=== PATIENT | female | born 1930 | race Hispanic/Latino ===

== ENCOUNTER 2017-11-19 07:24 | Observation (INO) | payer MEDICARE, BC ==
--- NOTE | 2017-11-19 08:01 | ED PDOC ---
Arrival/HPI - General Time Seen by Provider: 11/19/17 07:25 Historian: Patient - History of Present Illness Narrative History of Present Illness (Text): 11/19/17 07:55 An 86 year old female, whose past medical history includes HTN, gout, and hypothyroidism, presents to the emergency department for a complaint of bilateral rib/side pain. The patient states that the discomfort developed yesterday and worsened throughout the day. She reports that she had an episode of this discomfort once last week. She states that she was using a heating pad with no relief of her symptoms. The patient lives alone and at baseline walks with a cane. The patient denies fevers, chills, headache, dizziness, sore throat, cough, chest pain, shortness of breath, dyspnea on exertion, abdominal pain, nausea, vomiting, diarrhea, neck pain, urinary/bowel changes or any other complaint. PMD: Dr. Cantrell Weigher And Charger: Dr. Leong Time/Duration: Other (Yesterday) Symptom Onset: Sudden Symptom Course: Unchanged Activities at Onset: Rest, Light Context: Home Past Medical History - Provider Review Nursing Documentation Reviewed: Yes - Infectious Disease Hx of Infectious Diseases: None - Tetanus Immunization Tetanus Immunization: Unknown - Cardiac Hx Hypertension: Yes Hx Peripheral Edema: Yes (bilateral lower extremities) - Pulmonary Hx Pneumonia: Yes (x3) - Neurological Hx Neurological Disorder: (peripheral neuropathy) - Endocrine/Metabolic Hx Hypothyroidism: Yes - Hematological/Oncological Hx Cancer: Yes (skin) - Integumentary Hx Basal Cell Carcinoma: Yes (skin ca growth removed from front of scalp) - Musculoskeletal/Rheumatological Hx Falls: No - Psychiatric Hx Depression: No Hx Emotional Abuse: No Hx Physical Abuse: No Hx Substance Use: No - Surgical History Hx Appendectomy: Yes - Suicidal Assessment Feels Threatened In Home Enviroment: No Family/Social History - Physician Review Nursing Documentation Reviewed: Yes Family/Social History: No Known Family HX Smoking Status: Former Smoker Hx Alcohol Use: No Hx Substance Use: No Hx Substance Use Treatment: No Allergies/Home Meds Allergies/Adverse Reactions: Allergies No Known Allergies Allergy (Verified 10/07/12 10:00) Home Medications: Home Meds Medication Instructions Recorded Confirmed Levothyroxine Sodium 0.075 mg PO DAILY 10/07/12 11/19/17 [Levothyroxine] Allopurinol [Zyloprim] 300 mg PO DAILY 11/19/17 11/19/17 Losartan Potassium 25 mg PO DAILY 11/19/17 11/19/17 Triamterene/Hydrochlorothiazid 1 cap PO DAILY 11/19/17 11/19/17 [Triamterene-Hydrochlorothiazide 25 mg-37.5 mg] Review of Systems - Physician Review All systems were reviewed & negative as marked: Yes - Review of Systems Constitutional: absent: Fevers ENT: absent: Sore Throat Respiratory: absent: SOB, Cough Cardiovascular: absent: Chest Pain, DURAND Gastrointestinal: absent: Abdominal Pain, Stool Changes, Diarrhea, Nausea, Vomiting Genitourinary Female: absent: Urine Output Changes Musculoskeletal: Other (Bilateral side/rib pain). absent: Neck Pain Neurological: absent: Headache, Dizziness Physical Exam Vital Signs Reviewed: Yes Temperature: Afebrile Blood Pressure: Normal Pulse: Regular Respiratory Rate: Normal Appearance: Positive for: Well-Appearing, Non-Toxic, Comfortable Pain Distress: None Mental Status: Positive for: Alert and Oriented X 3 - Systems Exam Head: Present: Atraumatic, Normocephalic Pupils: Present: PERRL Extroacular Muscles: Present: EOMI Conjunctiva: Present: Normal Mouth: Present: Moist Mucous Membranes Neck: Present: Normal Range of Motion Respiratory/Chest: Present: Clear to Auscultation, Good Air Exchange. No: Respiratory Distress, Accessory Muscle Use Cardiovascular: Present: Regular Rate and Rhythm, Normal S1, S2. No: Murmurs Abdomen: No: Tenderness, Distention, Peritoneal Signs Back: Present: Other (Tenderness to palpation of bilateral ribs and lateral sides.) Upper Extremity: Present: Normal Inspection. No: Cyanosis, Edema Lower Extremity: Present: Normal Inspection. No: Edema Neurological: Present: GCS=15, CN II-XII Intact, Speech Normal Skin: Present: Warm, Dry, Normal Color. No: Rashes Psychiatric: Present: Alert, Oriented x 3, Normal Insight, Normal Concentration Medical Decision Making ED Course and Treatment: 11/19/17 08:04 Impression: An 87 year old female presents to the emergency department with complaint of bilateral rib/side pain. On exam, there was tenderness to palpation of bilateral ribs. No abdominal pain or tenderness. No DURAND, orthopnea or PND. Low pretest wells, will seek dimer to r/out. No tearing Chest pain to back. Given no scapular pain and pain reproducible to palpation: likely MSK however- Given hx of HTN, HLD, Smoking and Age, atypitcal chest pain w/ non-normal non-stemi EKG will likely be moderate Heart score. Has not had echo or stress x3 years. NO CVAT. Plan: -- EKG -- Chest X-ray -- Labs -- Reassess and disposition Prior Visits: Notes and results from previous visits were reviewed. Progress Notes: 11/19/17 07:39 EKG: Ordered, reviewed, and independently interpreted the EKG. Rate : 75 BPM Rhythm : NSR Interpretation : PACs. No STEMI. Normal [place]. Chest X-ray Dictator : Richard Cannon MD Report Date : 11/19/2017 09:37:11 IMPRESSION: No interval acute cardiopulmonary disease appreciated. Limited chronic fibrosis left medial base and right costophrenic sulcus versus trace chronic right pleural effusion. 11/19/17 08:58: Case discussed in detail with Dr. Cantrell, who accepts patient to his service. Requests order for cardiology consult from Dr. Leong. Labs largely unremarkable except elevated D dimer. Will CTA to rule out dissection vs. PE. CTA chest PE protocol Dictator : Brigida Maravilla MD Report Date : 11/19/2017 09:52:50 Impression: No large central or segmental pulmonary embolus identified. Patchy rounded consolidation within the superior posterior aspect of the left upper lobe suspicious for pneumonia. Recommend follow-up to ensure complete resolution. Additional findings as above. 11/19/17 ~1000 appreciate consult w/ Dr. Peguero: to admit to his service for moderate CP. pending 2nd trop - Lab Interpretations I have reviewed the lab results: Yes - EKG Interpretation Interpreted by ED Physician: Yes Type: 12 lead EKG - Scribe Statement The provider has reviewed the documentation as recorded by the Scribe Terrie Gifford Provider Scribe Attestation: All medical record entries made by the Scribe were at my direction and person ally dictated by me. I have reviewed the chart and agree that the record accurately reflects my personal performance of the history, physical exam, medical decision making, and the department course for this patient. I have also personally directed, reviewed, and agree with the discharge instructions and disposition. Disposition/Present on Arrival - Present on Arrival Any Indicators Present on Arrival: No History of DVT/PE: No History of Uncontrolled Diabetes: No Urinary Catheter: No History Surgical Site Infection Following: None - Disposition Have Diagnosis and Disposition been Completed?: Yes Diagnosis: Chest pain Disposition Time: 09:00 Patient Problems: Current Active Problems Problem Status Onset Chest pain Acute Condition: GOOD
[2017-11-19 08:28] LABS: BASO # 0.03 K/mm3 (0.0-2.0); BASO % 0.4 % (0.0-3.0); EOS # 0.2 (0.0-0.7); EOS % 2.4 % (1.5-5.0); GRAN # 5.2 (1.4-6.5); GRAN % 72.6 % (50.0-68.0); HEMOGLOBIN 10.7 g/dL (12.0-16.0); LYMPH # 1.4 (1.2-3.4); LYMPH % 19.2 % (22.0-35.0); MEAN CORPUSCULAR HEMOGLOBIN 31.8 pg (25.0-35.0); MEAN CORPUSCULAR HGB CONC 33.4 g/dl (31.0-37.0); MEAN PLATELET VOLUME 9.5 fl (7.0-11.0); MONO # 0.4 (0.1-0.6); MONO % 5.4 % (1.0-6.0); RBC 3.37 10^6/uL (3.5-6.1); RED CELL DISTRIBUTION WIDTH 15.5 % (11.5-14.5); WHITE BLOOD COUNT 7.2 10^3/ul (4.5-11.0)
[2017-11-19 08:38] LABS: ALB/GLOB RATIO 1.2 (1.1-1.8); ALBUMIN 3.9 g/dL (3.0-4.8); ALT/SGPT 16 U/L (7-56); AST/SGOT 26 U/L (14-36); BLOOD UREA NITROGEN 16 mg/dL (7-21); CALCIUM 10.1 mg/dL (8.4-10.5); GFR NON-AFRICAN AMERICAN 43; LIPASE 93 U/L (23-300)
[2017-11-19 08:49] LABS: TROPONIN I < 0.01 ng/mL
[2017-11-19] MEDS ORDERED: Iohexol 350 MG/100 ML VIAL ONE (09:03)
[2017-11-19] MEDS ORDERED: Sodium Chloride 0.9% 1,000 ML IV SCH (09:15)
--- NOTE | 2017-11-19 09:40 | RAD ---
Date of service: 11/19/2017 HISTORY: cp COMPARISON: Portable chest 10/07/2017 10:30 a.m.. FINDINGS: LUNGS: No interval airspace disease identified bilaterally. Stable fibrosis medial left base. PLEURA: No acute pleural effusion. No pneumothorax bilaterally. Chronic fibrosis favored over chronic pleural effusion blunting the right costophrenic sulcus. CARDIOVASCULAR: Stable cardiomediastinal silhouette. No pulmonary vascular derangement appreciated. OSSEOUS STRUCTURES: No significant abnormalities. VISUALIZED UPPER ABDOMEN: Normal. OTHER FINDINGS: None. IMPRESSION: No interval acute cardiopulmonary disease appreciated. Limited chronic fibrosis left medial base and right costophrenic sulcus versus trace chronic right pleural effusion.
--- NOTE | 2017-11-19 09:56 | CT ---
Date of service: 11/19/2017 CTA chest PE protocol Indication: elevated dimer, cp Technique: Contiguous axial images were obtained through the chest with intravenous contrast enhancement. Sagittal and coronal reconstructions were generated and reviewed. This CT exam was performed using 1 or more of the following dose reduction techniques: Automated exposure control, adjustment of the MAA and/or kV according to patient size, and/or use of iterative reconstruction technique. IV contrast: 100 mL Omnipaque 350 Radiation dose (DLP): 326.40 MGy-cm. Comparison: Chest x-ray performed 11/19/17 Findings: Visualized portions of the inferior thyroid gland appear unremarkable. The mediastinal and hilar vascular structures appear within normal limits. The heart appears within normal limits of size. Dense atherosclerotic calcifications of the aorta and branches. No large central or segmental pulmonary embolus evident. Patchy rounded consolidation within the superior posterior aspect of the left upper lobe suspicious for pneumonia. No pleural effusion. No pneumothorax. Right upper lobe calcified granuloma. Limited visualized portions of the upper abdomen: 15 mm probable splenule. Partially imaged hepatomegaly. Pancreatic atrophy. Kyphosis. Osseous demineralization. Degenerative changes. Impression: No large central or segmental pulmonary embolus identified. Patchy rounded consolidation within the superior posterior aspect of the left upper lobe suspicious for pneumonia. Recommend follow-up to ensure complete resolution. Additional findings as above.
[2017-11-19] MEDS ORDERED: Azithromycin 500MG/NS 250ml 500 MG/250 ML BAG IVPB STA (09:59)
[2017-11-19] MEDS ORDERED: hydroCHLOROthiazide-Triamterene 25 mg-37.5 mg Cap UD PO SCH (10:00)
[2017-11-19] MEDS ORDERED: Levothyroxine 75 MCG TAB PO SCH (10:00)
[2017-11-19] MEDS ORDERED: cefTRIAXone 1 gm 1 GM/100 ML BAG IVPB ONE (10:01)
--- NOTE | 2017-11-19 10:26 | CP.PCM.HP ---
<Sandhya Lopez - Last Filed: 11/19/17 10:11> History of Present Illness - History of Present Illness History of Present Illness: H&P for Jyoti Esteban PGY3 This is an 87yo female with past medical history of HTN, HLD L carotid stenosis s/p CEA, gout who came to ED for bilateral side pain for 1 day. Patient reports she has been having this pain on both sides of her ribs that does not radiate. It hurts when she presses, but does not hurt when she takes a deep breath. Patient denies any trauma but does a lot of house work at home which includes la undry and cooking. Patient denies chest pain, cough, shortness of breath, sick contacts, nausea/vomiting/diarrhea, fever/chills, numbness/tingling, dysuria or hematuria. Past medical history: Hypothyroid, HLD, HTN, L carotid stenosis s/p CEA, gout, chronic lymphedema Past surgical history: L CEA (2011), Partial salpingectomy, R cataract surgery, Melanoma removal on head Home meds: Reviewed as per MAR Allergies: NKDA Social history: Former smoker for 45yrs, quit 25yrs ago. Denies EtOH or drug use. Lives alone. Walks with cane and rolling walker. Drinks a lot of mountain dew as per daughter. Family history: Dad- age 65- [place], Mom- age 81 of CHF, Sister- age 71 cancer- unknown kind Present on Admission - Present on Admission Any Indicators Present on Admission: No Review of Systems - Review of Systems All systems: reviewed and no additional remarkable complaints except Review of Systems: 12 point ROS reviewed as per HPI and is otherwise negative Past Patient History - Infectious Disease Hx of Infectious Diseases: None - Tetanus Immunizations Tetanus Immunization: Unknown - Past Social History Smoking Status: Former Smoker - CARDIAC Hx Hypertension: Yes Hx Peripheral Edema: Yes (bilateral lower extremities) - PULMONARY Hx Pneumonia: Yes (x3) - NEUROLOGICAL Hx Neurological Disorder: (peripheral neuropathy) - HEENT Hx HEENT Problems: No - ENDOCRINE/METABOLIC Hx Hypothyroidism: Yes - HEMATOLOGICAL/ONCOLOGICAL Hx Cancer: Yes (skin) - INTEGUMENTARY Hx Basil Cell: Yes (skin ca growth removed from front of scalp) - MUSCULOSKELETAL/RHEUMATOLOGICAL Hx Falls: No - PSYCHIATRIC Hx Depression: No Hx Emotional Abuse: No Hx Physical Abuse: No Hx Substance Use: No - SURGICAL HISTORY Hx Appendectomy: Yes - ANESTHESIA Hx Anesthesia Reactions: No Meds Allergies/Adverse Reactions: Allergies Allergy/AdvReac Type Severity Reaction Status Date / Time No Known Allergies Allergy Verified 11/19/17 11:55 Physical Exam - Constitutional Appears: Well, No Acute Distress - Head Exam Head Exam: ATRAUMATIC, NORMAL INSPECTION, NORMOCEPHALIC - Eye Exam Eye Exam: EOMI, Normal appearance, PERRL Pupil Exam: NORMAL ACCOMODATION, PERRL - ENT Exam ENT Exam: Mucous Membranes Moist, Normal Exam - Neck Exam Neck exam: Positive for: Full Rom, Normal Inspection. Negative for: Lymphadenopathy, Tenderness, Thyromegaly - Respiratory Exam Respiratory Exam: Clear to Auscultation Bilateral, NORMAL BREATHING PATTERN. a bsent: Rales, Rhonchi, Wheezes - Cardiovascular Exam Cardiovascular Exam: REGULAR RHYTHM, +S1, +S2. absent: Gallop, Rubs, Systolic Murmur - GI/Abdominal Exam GI & Abdominal Exam: Normal Bowel Sounds, Soft. absent: Guarding, Mass, Rebound, Rigid, Tenderness - Extremities Exam Extremities exam: Positive for: normal capillary refill, normal inspection, pedal edema, pedal pulses present. Negative for: calf tenderness - Neurological Exam Neurological exam: Alert, CN II-XII Intact, Oriented x3 - Psychiatric Exam Psychiatric exam: Normal Affect, Normal Mood - Skin Skin Exam: Dry, Intact, Normal Color, Warm Results - Vital Signs Recent Vital Signs: Last Vital Signs Temp 99.2 F 11/19/17 07:51 Pulse 80 11/19/17 07:51 Resp 18 11/19/17 07:51 BP 147/78 11/19/17 07:52 Pulse Ox 96 11/19/17 07:51 - Labs Result Diagrams: 11/19/17 08:15 11/19/17 08:15 Labs: Laboratory Results - last 24 hr 11/19/17 11/19/17 11/19/17 08:15 08:15 08:15 WBC 7.2 RBC 3.37 L Hgb 10.7 L Hct 32.0 L MCV 95.0 MCH 31.8 MCHC 33.4 RDW 15.5 H Plt Count 226 MPV 9.5 Gran % 72.6 H Lymph % (Auto) 19.2 L [place] % (Auto) 5.4 Eos % (Auto) 2.4 Baso % (Auto) 0.4 Gran # 5.20 Lymph # (Auto) 1.4 [place] # (Auto) 0.4 Eos # (Auto) 0.2 Baso # (Auto) 0.03 D-Dimer, Quantitative 789 H Sodium 138 Potassium 3.9 Chloride 106 Carbon Dioxide 26 Anion Gap 11 BUN 16 Creatinine 1.2 Est GFR ( Amer) 52 Est GFR (Non-Af Amer) 43 Random Glucose 133 H Calcium 10.1 Magnesium 1.8 Total Bilirubin 0.6 AST 26 ALT 16 Alkaline Phosphatase 97 Total Creatine Kinase 61 Troponin I < 0.01 Total Protein 7.0 Albumin 3.9 Globulin 3.1 Albumin/Globulin Ratio 1.2 Lipase 93 Assessment & Plan - Assessment and Plan (Free Text) Assessment: 1. Bilateral rib pain - most likely MSK but will rule out ACS 2. HTN 3. Hypothyroidism 4. Gout 5. Anemia - Hgb stable Plan: Labs and imaging reviewed. EKG showed NSR @70. Troponin negative x 1 and will trend. Cardiology consulted. Will check HgbA1c and thyroid panel. CT chest reviewed which reports possible pneumonia. Patient has no symptoms of pneumonia or infection at this time. Will continue home meds for HTN and gout. Will check iron studies for chronic anemia. Tylenol prn pain. Case seen, discussed and reviewed with Dr. Óscar Lopez PGY3 - Date & Time Date: 11/19/17 Time: 10:33 <Shakeel Cantrell - Last Filed: 11/22/17 21:28> Results - Vital Signs Recent Vital Signs: Last Vital Signs Temp 98.2 F 11/20/17 06:00 Pulse 76 11/20/17 14:00 Resp 20 11/20/17 06:00 BP 145/57 L 11/20/17 09:54 Pulse Ox 98 11/20/17 06:00 - Labs Result Diagrams: 11/20/17 11:30 11/20/17 11:30 Assessment & Plan - Assessment and Plan (Free Text) Plan: Pt seen and examined. I have reviewed the note of the medical csr and agree with it. I have discussed the assessment and plan with the resident. I have reviewed the patient's labs and medications. Will get cardiology consult. EKG shows NSR. CT reviewed.
[2017-11-19 10:34] LABS: IRON 80 ug/dL (45-180)
[2017-11-19 10:44] LABS: % IRON SATURATION 28 % (20-55); TOTAL IRON BINDING CAPACITY 285 ug/dL (265-497)
[2017-11-19 13:48] LABS: URINE BILIRUBIN NEGATIVE (NEGATIVE); URINE BLOOD NEGATIVE (NEGATIVE); URINE GLUCOSE (UA) NEGATIVE (NEGATIVE); URINE LEUKOCYTE ESTERASE NEGATIVE Leu/uL (NEGATIVE); URINE PROTEIN 30 mg/dL (<30 mg/dL); URINE UROBILINOGEN 0.2 E.U./dL (<1 E.U./dL)
[2017-11-19 13:49] LABS: URINE APPEARANCE SL CLOUDY (CLEAR); URINE COLOR YELLOW (YELLOW)
[2017-11-19 13:50] LABS: URINE RBC NEGATIVE /hpf (0-2); URINE WBC 0 - 2 /hpf (0-6)
--- NOTE | 2017-11-19 15:12 | CARD ---
APPROVED REPORT Date of service: 11/19/2017 EKG Measurement Heart [id number] <Conclusion> Sinus rhythm with premature atrial complexes ST abnormality, possible digitalis effect Abnormal ECG
[2017-11-19] MEDS ORDERED: Influenza Vaccine 60 mcg/0.5 mL SYR (4YR UP) IM ONE (17:21)
[2017-11-19] MEDS ORDERED: Pneumococcal 23-Valent Vaccine IM ONE (17:21)
[2017-11-19 17:25] VITALS: RESP 20; O2SAT 98; BMI 24.0
[2017-11-20 08:27] VITALS: TEMP 98.2
[2017-11-20 09:57] VITALS: BP 145/57
[2017-11-20] MEDS ORDERED: Levothyroxine 75 MCG TAB PO SCH (10:00)
[2017-11-20] MEDS ORDERED: hydroCHLOROthiazide-Triamterene 25 mg-37.5 mg Cap UD PO SCH (10:00)
--- NOTE | 2017-11-20 11:36 | CARD ---
APPROVED REPORT Date of service: 11/20/2017 EKG Measurement Heart [id number] <Conclusion> Normal sinus rhythm ST abnormality, possible digitalis effect Abnormal ECG
[2017-11-20 11:37] LABS: HEMOGLOBIN 11.9 g/dL (12.0-16.0); MEAN CORPUSCULAR HEMOGLOBIN 31.6 pg (25.0-35.0); MEAN CORPUSCULAR HGB CONC 33.2 g/dl (31.0-37.0); MEAN PLATELET VOLUME 9.8 fl (7.0-11.0); RBC 3.77 10^6/uL (3.5-6.1); RED CELL DISTRIBUTION WIDTH 15.8 % (11.5-14.5); WHITE BLOOD COUNT 9.3 10^3/ul (4.5-11.0)
[2017-11-20 11:50] LABS: ALB/GLOB RATIO 1.2 (1.1-1.8); ALBUMIN 4.3 g/dL (3.0-4.8); CALCIUM 10.7 mg/dL (8.4-10.5)
[2017-11-20 12:00] LABS: TROPONIN I 0.04 ng/mL
--- NOTE | 2017-11-20 14:24 | CON ---
DATE: 11/20/2017 CONSULTATION INDICATIONS: Chest pain. HISTORY OF PRESENT ILLNESS: This is an 87-year-old woman known to our practice with a history of bilateral rib cage side pain yesterday, prompting visit to the emergency room. The pain was nonpleuritic, not associated with shortness of breath and was unusual for her and may have been precipitated by doing laundry, but she is not sure. There was no anterior chest pain. No exertional chest pain, no orthopnea, PND, syncope, presyncope, lightheadedness, dizziness, vertigo, palpitations, edema, claudication. No fever, chills, rigors, sweats, hemoptysis, abdominal pain, nausea, vomiting, diarrhea, constipation or melena. PAST MEDICAL HISTORY: Her past medical history is notable for hypertension, a left carotid endarterectomy, hyperlipidemia, hypothyroidism, gout, CLL, cataract surgery, removal of a scalp melanoma. There is no history of rheumatic fever, myocardial infarction, angina, congestive heart failure, arrhythmia, stroke, TIA, diabetes. She had a couple of stress tests over the years, the last one appears to have been about 3 years ago. It was apparently unremarkable. MEDICATIONS AT THE TIME OF ADMISSION: Include levothyroxine, losartan, triamterene, Zyloprim. ALLERGIES: THERE ARE NO MEDICATION ALLERGIES REPORTED. SOCIAL HISTORY: She lives at home. She is ambulatory. She is a remote smoker. She does not drink alcohol significantly. FAMILY HISTORY: Notable for heart disease. REVIEW OF SYSTEMS: A 10-point review of systems otherwise unremarkable except as noted above. PHYSICAL EXAMINATION: GENERAL: She is a well-developed woman sitting on her bed in telemetry, in no acute distress. VITAL SIGNS: Notable for sinus rhythm to sinus bradycardia, 57-72 beats per minute. She is afebrile. Last blood pressure 170/82, respirations 18-20, O2 sat 98% on room air. HEENT: Reveals no neck vein distention, thyromegaly, carotid bruit. Mucous membranes moist. Conjunctiva pink. NECK: Supple. LUNGS: Clear throughout. HEART: Revealed normal first and second heart sounds. There is a soft systolic murmur along the left sternal border. ABDOMEN: Soft. Bowel sounds present. No mass, organomegaly, tenderness, rebound, guarding. No CVA tenderness. No palpable abdominal aortic aneurysm. EXTREMITIES: Reveals no cyanosis or clubbing. There is mild chronic ankle edema. NEUROLOGICALLY: Awake, alert and oriented. PSYCHIATRIC: Normal as to mood and affect. SKIN: Warm and dry. No rash or cellulitis. LABORATORY AND IMAGING: A portable chest x-ray is unremarkable, is read as no interval acute cardiopulmonary disease appreciated. Limited chronic fibrosis, left medial base and chronic right costophrenic sulcus versus trace chronic right pleural effusion. A CT scan of the chest revealed no evidence of pulmonary embolism. Patchy, rounded consolidation within the superior posterior aspect of the left upper lobe suspicious for pneumonia. EKG regular sinus rhythm, ST-T wave changes. No change from the previous EKG. White count normal, platelet count normal, hemoglobin 10.7, hematocrit 32, D-dimer elevated at 789. Electrolytes, BUN, creatinine, blood sugar unremarkable. A1c 5.9, magnesium 1.8. LFTs unremarkable. Several troponins are negative. TSH is high at 5.33. IMPRESSION: Marifer Lucas is an 87-year-old woman admitted with bilateral rib cage discomfort which is nonpleuritic. The D-dimer was elevated, but the CT scan does not show evidence of pulmonary embolism. She has hypertension, chronic edema, anemia. She is status post left carotid endarterectomy and is a former remote smoker. At this time, I will repeat her EKG. I will order an echocardiogram. Her blood pressure is elevated. We will titrate her blood pressure meds in conjunction with Dr. Cantrell. She could be out of bed. If the EKG is not changed and there is no further exacerbation of chest pain, she could be considered for outpatient nuclear stress testing earlier this week. I will follow along with you. I will make additional recommendations based on her clinical course. Given the possible pneumonia on the CT scan, a course of antibiotics might be appropriate and/or a pulmonary evaluation. Declan Dyson MD ESTELLE
[2017-11-20 15:47] VITALS: PULSE 76
--- NOTE | 2017-11-21 07:33 | CARD ---
APPROVED REPORT Date of service: 11/20/2017 EXAM: Two-dimensional and M-mode echocardiogram with Doppler and color Doppler. Other Information Quality : AverageRhythm : INDICATION Chest Pain 2D DIMENSIONS IVSd1.2 (0.7-1.1cm)LVDd4.0 (3.9-5.9cm) PWd1.2 (0.7-1.1cm)LVDs3.1 (2.5-4.0cm) FS (%) 23.6 %LVEF (%)47.0 (>50%) M-Mode DIMENSIONS Left Atrium (MM)4.30 (2.5-4.0cm)Aortic Root2.90 (2.2-3.7cm) Aortic Cusp Exc.1.90 (1.5-2.0cm) Aortic Valve AoV Peak Bklwtzbh205.0cm/Licha Peak GR.10mmHg Mitral Valve MV E Ijguliqn91.3cm/sMV A Qgavuyxv742.0cm/sE/A ratio0.8 TDI Lateral E' Peak V6.63cm/sMedial E' Peak V8.29cm/sE/Lateral E'13.8 E/Medial E'11.0 Tricuspid Valve TR Peak Prwcpxul674vv/sRAP [id number] Peak Gr.38mmHg [id number] LEFT VENTRICLE The left ventricle is normal size. There is mild concentric left ventricular hypertrophy. The left ventricular function is normal. The left ventricular ejection fraction is within the normal range. There is normal LV segmental wall motion. RIGHT VENTRICLE The right ventricle is normal size. ATRIA The left atrium is mildly dilated. The right atrium size is normal. The interatrial septum is intact with no evidence for an atrial septal defect. AORTIC VALVE The aortic valve is mildly to moderately calcified. There is trace aortic regurgitation. MITRAL VALVE The mitral valve is normal in structure. Mitral annular calcification is mild. Mitral regurgitation is trace. TRICUSPID VALVE The tricuspid valve is normal in structure. There is mild tricuspid regurgitation. PULMONIC VALVE The pulmonary valve is normal in structure. There is trace to mild pulmonic valvular regurgitation. GREAT VESSELS The aortic root is normal in size. PERICARDIAL EFFUSION There is no pericardial effusion. <Conclusion> The left ventricle is normal size. There is mild concentric left ventricular hypertrophy. The left ventricular function is normal. The aortic valve is mildly to moderately calcified. Aortic sclerosis vs. mild . There is mild tricuspid regurgitation.
--- NOTE | 2017-11-21 15:11 | DS ---
HISTORY OF PRESENT ILLNESS: Patient is an 87-year-old who came to emergency room because of right-sided chest pain moving towards the left side, radiating towards back. No associated fever or chills. No nausea or vomiting. No diarrhea. . PAST MEDICAL HISTORY: Significant for: 1. Hypertension. 2. Hyperlipidemia. 3. Hypothyroidism. 4. History of carotid endarterectomy. 5. History of COPD. PHYSICAL EXAMINATION: GENERAL: She looks comfortable and adamant to go home. VITAL SIGNS: She is afebrile, pulse 76, respirations 20, blood pressure 145/57. LUNGS: Bilateral fair airflow. No rhonchi or crackles. HEART: S1 and S2 audible. ABDOMEN: Soft, nontender. No rebound. No guarding. NEUROLOGIC: Patient is awake, alert, oriented, communicative, and ambulatory. LABORATORY DATA: WBC 9.3, hemoglobin 11.9, hematocrit 35.8, and platelets of 262. Chemistry: Sodium 138, potassium 3.9, chloride 102, CO2 of 20, BUN 19, creatinine 1.2, blood sugar of 169, calcium is 10.7. Blood cultures are negative. ASSESSMENT: 1. Noncardiac chest pain. 2. Hypertension. 3. Hyperlipidemia. 4. History of carotid stenosis. 5. Hypothyroidism. PLAN: Patient is clinically stable. She will be discharged home today. She will follow with her PMD. She is advised to take antiinflammatory as needed. Yesenia Polanco MD
== END 2017-11-20 16:01 | disposition home or self-care (01) ==
LOC: ED 07:24 → ERH 09:00 → 3RSO 17:01
PROVIDERS: ADMIT Internal Medicine Nephrology; ATTEND Internal Medicine Nephrology
DX: R07.89 Other chest pain (principal); I10 Essential (primary) hypertension; E78.5 Hyperlipidemia, unspecified; E03.9 Hypothyroidism, unspecified; J44.9 Chronic obstructive pulmonary disease, unspecified; M10.9 Gout, unspecified; I65.22 Occlusion and stenosis of left carotid artery; I89.0 Lymphedema, not elsewhere classified; Z87.891 Personal history of nicotine dependence
CPT/HCPCS: 36415; 71045; 71275; 80053; 81001; 82550; 82728; 83036; 83540; 83550; 83690; 83735; 84100; 84145; 84443; 84484; 85025; 85027; 85378; 87040; 93005; 93306; 99285; G0378; J7030; Q9967